=== PATIENT | female | born 1955 | race African-American/Black ===

== ENCOUNTER 2021-07-13 13:49 | Outpatient (CLI) | payer OTHER | END 2021-07-13 13:50 | disposition home or self-care (01) | LOC: CSHMRI 13:49 | PROVIDERS: ATTEND Orthopaedic Surgery | DX: M19.111 Post-traumatic osteoarthritis, right shoulder (principal); M94.211 Chondromalacia, right shoulder; M25.711 Osteophyte, right shoulder; M65.811 Other synovitis and tenosynovitis, right shoulder; S46.011A Strain of muscle(s) and tendon(s) of the rotator cuff of right shoulder, initial encounter; M62.511 Muscle wasting and atrophy, not elsewhere classified, right shoulder ==